=== PATIENT | female | born 1990 | race Caucasian/White ===

== ENCOUNTER 2021-03-12 11:02 | Emergency (ER) | payer OTHER, SELFPAY ==
[2021-03-12 11:33] VITALS: BP 126/92; PULSE 94; RESP 18; TEMP 36.5; O2SAT 99
--- NOTE | 2021-03-12 12:11 | ED.URI ---
HPI - URI/Sore Throat General Chief Complaint: Upper Respiratory Infection Stated Complaint: Sore Throat,Congestion Time Seen by Provider: 03/12/21 12:12 Source: patient and RN notes reviewed Mode of arrival: ambulatory Limitations: no limitations History of Present Illness HPI Narrative: 30 year old female presents to [facility] care accompanied by daughter with complaints of sore throat with sinus congestion and drainage for the past 4 days with some fatigue, nausea and dizziness and cough. Patient states that she has not had any known fevers, chills or sweats, denies any body aches. Patient reports that she has had her flu and Covid vaccinations and she works in day care setting. Patient reports that she has been taking Advil cold and congestion medication with no improvement in her symptoms MD elicited complaint: cough, sore throat, rhinorrhea and nasal congestion Related Data Home Medications Medication Instructions Recorded Confirmed alprazolam 0.5 mg BID 03/12/21 03/12/21 cyclobenzaprine 10 mg TID 03/12/21 03/12/21 escitalopram oxalate 10 mg DAILY 03/12/21 03/12/21 phentermine 37.5 mg DAILY 03/12/21 03/12/21 Allergies Allergy/AdvReac Type Severity Reaction Status Date / Time No Known Allergies Allergy Verified 03/12/21 12:13 Review of Systems Review of Systems: CONSTITUTIONAL: Denies fever, chills, or sweats. EYES: Denies visual changes, redness, or discharge. ENT: Positive for rhinorrhea, congestion, sore throat, no otalgia. CARDIOVASCULAR: Denies chest pain, palpitations, or edema. RESPIRATORY: Positive for cough no dyspnea. GASTROINTESTINAL: Denies abdominal pain,some nausea, no vomiting, or diarrhea. GENITOURINARY: Denies dysuria or hematuria. SKIN: Denies rash or itching. MUSCULOSKELETAL: Denies back pain, joint pain, or myalgia. NEUROLOGIC: Denies headache, numbness, or weakness, some dizziness PSYCHIATRIC: Positive for history of anxiety or depression. All systems reviewed & are unremarkable except as noted in HPI and below PMFSH Past Medical History Medical History (Updated 03/15/21 @ 21:10 by Carissa Mcallister NP) Anxiety Surgical History Surgical History (Updated 03/15/21 @ 21:11 by Carissa Mcallister NP) H/O tubal ligation Previous section Family History Family History (Updated 03/15/21 @ 21:12 by Carissa Mcallister NP) Father Heart disease Mother FH: thyroid cancer Sibling Down syndrome Social History Social History (Updated 03/15/21 @ 21:06 by Carissa Mcallister NP) Smoking status: Never smoker Alcohol intake: current Alcohol use details: rare Substance use: never Living arrangements: with family Occupation/Education: daycare Gender identity (if verbalized by the patient): Female Comments At time of signature, agree with nursing past medical, surgical, social and family history. There is no relevant family history pertinent to the presenting complaint Exam Narrative: GENERAL: Well-appearing, well-nourished, and in no acute distress. HEAD: Normocephalic, atraumatic. EYES: PERRLA and EOMI. ENT: Nares red with swollen turbinates, clear rhinorrhea no epistaxis. Mucous membranes moist.TM's normal with dull light reflex, throat red with no lesions or exudates, uvula red and swollen with some tonsil enlargement, post nasal drainage noted NECK: Supple.no lymphadenopathy CHEST: Clear to auscultation. No respiratory distress.SAO2 99% on room air HEART: Regular rate and rhythm. No murmur heard. Normal peripheral pulses. ABDOMEN: Soft, nontender, nondistended, normal active bowel sounds. EXTREMITIES: Normal range of motion. No edema. SKIN: Warm, dry, no rash. NEURO: No focal deficits. Alert and oriented x3. Course Vital Signs Vital signs: Vital Signs Temperature 36.5 C 03/12/21 11:33 Pulse Rate 94 03/12/21 11:33 Respiratory Rate 18 03/12/21 11:33 Blood Pressure 126/92 H 03/12/21 11:33 Pulse Oximetry 99 03/12/21 11:33 Temperature
== END 2021-03-12 13:20 | disposition home or self-care (01) ==
PROVIDERS: Emergency Provider Registered Nurse; PCP Physician Assistant
DX: J32.9 Chronic sinusitis, unspecified (principal); B96.89 Other specified bacterial agents as the cause of diseases classified elsewhere; J02.9 Acute pharyngitis, unspecified
CPT/HCPCS: 99213; G0463

== ENCOUNTER 2022-03-28 10:22 | Emergency (ER) | payer OTHER, SELFPAY ==
--- NOTE | 2022-03-28 10:54 | ED.GENADULT ---
HPI - General Adult General Chief complaint: Upper Respiratory Infection Stated complaint: sorethroat,cough Time Seen by Provider: 03/28/22 10:54 Source: patient Mode of arrival: ambulatory Limitations: no limitations History of Present Illness HPI narrative: 31-year-old female patient presents to the [facility] with complaints of sore throat, states he, headache and some nausea. 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 Patient daughter was recently diagnosed with strep throat. Patient denies any chest pain, shortness of breath. Denies any ear pain. Denies any Abdominal pain, vomiting or diarrhea. Related Data Home Medications Medication Instructions Recorded Confirmed alprazolam 0.5 mg tablet 0.5 mg BID 03/12/21 03/12/21 escitalopram oxalate 10 mg tablet 10 mg DAILY 03/12/21 03/12/21 omeprazole 20 mg capsule,delayed 20 mg PO DAILY 03/28/22 03/28/22 release phentermine 37.5 mg tablet 37.5 mg PO DAILY 03/28/22 03/28/22 Allergies Allergy/AdvReac Type Severity Reaction Status Date / Time No Known Allergies Allergy Verified 03/28/22 11:03 Review of Systems Review of Systems: CONSTITUTIONAL: Denies fever, positive chills, or sweats. EYES: Denies visual changes, redness, or discharge. ENT: Denies rhinorrhea, congestion, positive sore throat, denies otalgia. CARDIOVASCULAR: Denies chest pain, palpitations, or edema. RESPIRATORY: Denies cough or dyspnea. GASTROINTESTINAL: Denies abdominal pain, nausea, vomiting, or diarrhea. GENITOURINARY: Denies dysuria or hematuria. SKIN: Denies rash or itching. MUSCULOSKELETAL: Denies back pain, joint pain, or myalgia. NEUROLOGIC: positive headache, denies numbness, or weakness. PSYCHIATRIC: Denies anxiety or depression. [facility] Past Medical History Medical History Anxiety Surgical History Surgical History H/O tubal ligation Previous section Family History Family History (Updated 03/15/21 @ 21:12 by Carissa Mcallister NP) Father Heart disease Mother FH: thyroid cancer Sibling Down syndrome Social History Social History Smoking status: Never smoker Alcohol intake: current Alcohol use details: rare Substance use: never Gender identity (if verbalized by the patient): Female Comments At the time of my signature I agree with nursing past medical history, surgical, social, and family history. There is no relevant family history pertinent to the presenting complaint. Exam Narrative: GENERAL: Well-appearing, well-nourished, and in no acute distress. HEAD: Normocephalic, atraumatic. EYES: PERRLA and EOMI. ENT: Nares with erythema and edema noted bilaterally, no rhinorrhea or epistaxis. Mucous membranes moist. posterior pharynx with no erythema, tonsillectomy, exudates or lesions present. Bilateral TMs are clear no erythema from buys the canal. NECK: Supple. No lymphadenopathy CHEST: Clear to auscultation. No respiratory distress. Patient able talk clear complete sentences. HEART: Regular rate and rhythm. No murmur heard. Normal peripheral pulses. ABDOMEN: Soft, nontender, nondistended, normal active bowel sounds. EXTREMITIES: Normal range of motion. No edema. SKIN: Warm, dry, no rash. NEURO: No focal deficits. Alert and oriented x3. Course Course Level of Care: Express Care Visit Reevaluation(s) Reevaluation #1: Re-evaluated patient notified her that her strep test has come back negative today. We will send off a culture to lab for verification if this does come back positive we will call in antibiotics. I did go ahead and page the patient for a couple of days from work since she does work in daycare by the time she is ready to go back we should have the results of the culture. Patient is aware of the plan of care denies
[2022-03-28 11:01] VITALS: BP 131/95; PULSE 78; RESP 18; TEMP 36.9; O2SAT 100
== END 2022-03-28 11:30 | disposition home or self-care (01) ==
PROVIDERS: Emergency Provider Nurse Practitioner Family
DX: J02.9 Acute pharyngitis, unspecified (principal); F41.9 Anxiety disorder, unspecified
CPT/HCPCS: 87081; 87880; 99213; G0463

== ENCOUNTER 2022-06-02 16:28 | Emergency (ER) | payer OTHER, SELFPAY ==
[2022-06-02 16:47] VITALS: BP 136/86; PULSE 86; RESP 20; TEMP 36.3; O2SAT 100
--- NOTE | 2022-06-02 16:47 | ED.URI ---
HPI - URI/Sore Throat General Chief Complaint: Upper Respiratory Infection Stated Complaint: Sore Throat,Congestion Time Seen by Provider: 06/02/22 16:52 History of Present Illness HPI Narrative: 31 y/o female presented for c/o sore throat, cough, headache and runny nose, onset 3 days. Endorses subjective fever and sweats today. Denies sob, wheezing, n/v/d. Endorses dtr has similar symptoms. Not taking anything for symptoms. 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 Last treated for strep 6 weeks ago. Related Data Home Medications Medication Instructions Recorded Confirmed alprazolam 0.5 mg tablet 0.5 mg PO BID PRN Anxiety 03/12/21 06/02/22 escitalopram oxalate 10 mg tablet 10 mg PO DAILY 03/12/21 06/02/22 omeprazole 20 mg capsule,delayed 20 mg PO DAILY 03/28/22 06/02/22 release Allergies Allergy/AdvReac Type Severity Reaction Status Date / Time No Known Allergies Allergy Verified 06/02/22 16:30 Review of Systems Review of Systems: CONSTITUTIONAL: Denies body aches, fever, chills, or sweats. EYES: Denies visual changes, redness, or discharge. ENT: per HPI CARDIOVASCULAR: Denies chest pain, palpitations, or edema. RESPIRATORY: Denies dyspnea. GASTROINTESTINAL: Denies abdominal pain, nausea, vomiting, or diarrhea. SKIN: Denies rash, itching, or wounds. MUSCULOSKELETAL: Denies back pain, joint pain, or myalgia. NEUROLOGIC: Denies headache PMFSH Past Medical History Medical History Anxiety Surgical History Surgical History H/O tubal ligation Previous section Family History Family History Father Heart disease Mother FH: thyroid cancer Sibling Down syndrome Social History Social History Smoking status: Never smoker Alcohol intake: current Alcohol use details: rare Substance use: never Living arrangements: with family Occupation/Education: daycare Gender identity (if verbalized by the patient): Female Exam Narrative: GENERAL: mildly Ill-appearing, no acute distress. EYES: conjunctivae clear ENT: Mucous membranes moist. TM pearly alvarado with normal light reflex bilaterally; no tragal tenderness. Oropharynx severely erythematous Tonsils enlarged and without exudate. No drooling, no hoarseness, no trismus, uvula midline. No tripod positioning, hot potato voice, or soft palate swelling. NECK: Supple. No lymphadenopathy CHEST: Clear to auscultation, breath sounds equal. No respiratory distress, speaks in full sentences. HEART: Regular rate and rhythm. No murmur heard. SKIN: Warm, dry, no rash. NEURO: Alert and oriented x3. Course Course Emergency Course: Patient is aware of diagnosis, understands and agrees to treatment plan. Anticipatory guidance given. Patient agrees to follow-up as directed and is aware of reasons to seek care at the emergency department. Portions of this record may have been created with voice recognition software Level of Care: Express Care Visit Vital Signs Vital signs: Vital Signs Temperature 97.3 F L 06/02/22 16:47 Pulse Rate 86 06/02/22 16:47 Respiratory Rate 20 06/02/22 16:47 Blood Pressure 136/86 06/02/22 16:47 Pulse Oximetry 100 06/02/22 16:47 Oxygen Delivery Room Air 06/02/22 16:47 Temperature 97.3 F L 06/02/22 16:47 Pulse Rate 86 06/02/22 16:47 Respiratory Rate 20 06/02/22 16:47 Blood Pressure 136/86 06/02/22 16:47 Pulse Oximetry 100 06/02/22 16:47 Oxygen Delivery Room Air 06/02/22 16:47 MDM - URI/Sore Throat MDM Narrative Medical decision making narrative: POS strep result reviewed with pt.Advise supportive treatments. Patient is appropriate for outpatient treatment and follow-up. Differential Diagnosis Differential diagnosis: Likely upper res
== END 2022-06-02 17:10 | disposition home or self-care (01) ==
PROVIDERS: Emergency Provider Nurse Practitioner Family
DX: J02.0 Streptococcal pharyngitis (principal)
CPT/HCPCS: 99213; G0463